=== PATIENT | male | born 1975 | race Hispanic/Latino ===

== ENCOUNTER 2017-06-16 22:57 | Observation (INO) | payer BC, OTHER ==
[~2017-06-16] VITALS: Ht 157.5 cm; Wt 51.3 kg
[2017-06-16] MEDS ORDERED: SODIUM CHLORIDE 0.9% 1000ML 3,000 ML IV ONE (23:29)
[2017-06-16] MEDS ORDERED: ONDANSETRON HCL 4 MG/2 ML VIAL ONE (23:29)
[2017-06-16 23:32] LABS: BASOPHILS % (AUTO) 0.1 % (0.0-5.0); HEMATOCRIT 47.9 % (42-54); LYMPHOCYTES % (AUTO) 5.8 % (21.0-51.0); MEAN CORPUSCULAR HEMOGLOBIN 33.6 pg (27.0-33.0); MEAN CORPUSCULAR VOLUME 96.1 fL (79-99); MONOCYTES % (AUTO) 3.9 % (3.0-13.0); NEUTROPHILS % (AUTO) 90.2 % (40.0-77.0); RED BLOOD CELL COUNT(AUTO) 4.99 MIL/uL (4.50-6.20); RED CELL DISTRIBUTION WIDTH 12.8 % (11.0-15.5); WHITE BLOOD COUNT (AUTO) 16.8 K/uL (4.8-10.8)
[2017-06-16 23:43] LABS: CREATININE 2.1 mg/dL (0.5-1.5); POTASSIUM 3.8 mmol/L (3.5-5.1)
[2017-06-16 23:47] LABS: ALBUMIN 5.5 g/dL (3.5-5.0); BILIRUBIN,TOTAL 0.8 mg/dL (0.2-1.0); TOTAL PROTEIN, SERUM 9.8 g/dL (6.0-8.3)
[2017-06-16 23:51] LABS: PLATELET COUNT (AUTO) 593 K/uL (130-400)
[2017-06-17] MEDS ORDERED: DICYCLOMINE HCL 10 MG/ML 2ML AMP IM ONE ×2 (05:54→08:02)
[2017-06-17] MEDS ORDERED: SODIUM CHLORIDE 0.9% 1000ML 1,000 ML IV ONE ×2 (08:28→22:14)
[2017-06-17] MEDS ORDERED: PANTOPRAZOLE SODIUM 40 MG TABLET.DR PO ONE (08:29)
[2017-06-17 10:12] VITALS: BP 138/81
[2017-06-17 11:00] VITALS: BP 122/65
[2017-06-17] MEDS ORDERED: GABA-529 PO (15:08)
[2017-06-17] MEDS ORDERED: OMEP1PAC5 PO (15:08)
[2017-06-17] MEDS ORDERED: DEXL30CA3 PO (15:08)
[2017-06-17] MEDS ORDERED: DICY20 PO (15:08)
[2017-06-17] MEDS ORDERED: LORA1TAB3 PO (15:08)
[2017-06-17] MEDS ORDERED: ABAC1TAB15 PO (15:08)
[2017-06-17 16:00] VITALS: BP 123/88
[2017-06-17 20:14] VITALS: BP 141/83
[2017-06-18 00:53] VITALS: BP 127/79
[2017-06-18 04:26] VITALS: BP 129/82
[2017-06-18] MEDS ORDERED: SODIUM CHLORIDE 0.9% 1000ML 1,000 ML IV SCH (05:45)
[2017-06-18] MEDS: ONDANSETRON HCL 4 MG/2 ML VIAL IVP PRN ×2 (05:55→16:09)
[2017-06-18 07:45] VITALS: BP 142/80
[2017-06-18] MEDS ORDERED: MORPHINE SULFATE 2 MG/ML 1ML SYG IVP PRN (08:15)
[2017-06-18] MEDS ORDERED: PANTOPRAZOLE 40 MG/VIAL IVP SCH (09:00)
[2017-06-18 11:59] VITALS: BP 123/65
[2017-06-18] MEDS ORDERED: DIPHENOXYLATE HCL/ATROPINE 2.5/0.025 MG TAB PO PRN (12:45)
[2017-06-18 13:39] LABS: CREATININE 0.6 mg/dL (0.5-1.5); POTASSIUM 3.3 mmol/L (3.5-5.1)
[2017-06-18 16:37] VITALS: BP 126/81
== END 2017-06-18 17:30 | disposition home or self-care (01) ==
LOC: EDH 22:57 → EDHIP 06-17 08:18 → 4BH 06-17 09:42
PROVIDERS: ADMIT Internal Medicine Hematology & Oncology; ATTEND Internal Medicine Hematology & Oncology
DX: N17.9 Acute kidney failure, unspecified (principal); K31.84 Gastroparesis; K52.9 Noninfective gastroenteritis and colitis, unspecified; G43.909 Migraine, unspecified, not intractable, without status migrainosus; K21.9 Gastro-esophageal reflux disease without esophagitis; B20 Human immunodeficiency virus [HIV] disease; Z80.1 Family history of malignant neoplasm of trachea, bronchus and lung; Z87.442 Personal history of urinary calculi; Z87.11 Personal history of peptic ulcer disease; Z79.899 Other long term (current) drug therapy
CPT/HCPCS: 36415 ×2; 80048; 80053; 85025; 87046; 87205; 87324; 93005; 96361; 96374; 96375; 96376; 99285; C9113; G0378 ×33; J0500 ×2; J2405 ×3; J7030 ×4

== ENCOUNTER → 2017-08-17 | Outpatient (CLI) | payer BC ==
[~2017-08-17] MED LIST: ABAC1TAB15 PO; DEXL30CA3 PO; DICY20 PO; GABA-529 PO; LORA1TAB3 PO; OMEP1PAC5 PO
== END | disposition home or self-care (01) ==
LOC: RAH 10:51
PROVIDERS: ATTEND Internal Medicine
DX: K21.9 Gastro-esophageal reflux disease without esophagitis (principal); R63.4 Abnormal weight loss; R11.2 Nausea with vomiting, unspecified
CPT/HCPCS: 78264; A9541

== ENCOUNTER 2017-10-21 20:00 | Emergency (ER) | payer BC ==
[2017-10-21 20:30] LABS: BASOPHILS % (AUTO) 0.1 % (0.0-5.0); HEMATOCRIT 42.1 % (42-54); LYMPHOCYTES % (AUTO) 13.2 % (21.0-51.0); MEAN CORPUSCULAR HEMOGLOBIN 34.3 pg (27.0-33.0); MEAN CORPUSCULAR HGB CONC 35.3 g/dL (32.0-36.0); MEAN CORPUSCULAR VOLUME 97.2 fL (79-99); MONOCYTES % (AUTO) 9.7 % (3.0-13.0); PLATELET COUNT (AUTO) 371 K/uL (130-400); RED BLOOD CELL COUNT(AUTO) 4.33 MIL/uL (4.50-6.20); RED CELL DISTRIBUTION WIDTH 12.8 % (11.0-15.5); WHITE BLOOD COUNT (AUTO) 9.2 K/uL (4.8-10.8)
[2017-10-21] MEDS ORDERED: ONDANSETRON HCL 4 MG/2 ML VIAL ONE (20:52)
[2017-10-21] MEDS ORDERED: SODIUM CHLORIDE 0.9% 1000ML 1,000 ML IV ONE (20:52)
[2017-10-21 21:24] LABS: ALBUMIN 5.1 g/dL (3.5-5.0); BILIRUBIN,TOTAL 0.5 mg/dL (0.2-1.0)
[2017-10-21] MEDS ORDERED: POTASSIUM BICARB/CIT AC 25 MEQ TABLET.EFF ONE (21:38)
== END 2017-10-21 22:34 | disposition home or self-care (01) ==
LOC: EEVIPCON 20:00 → EDH 20:00
DX: E87.6 Hypokalemia (principal); R19.7 Diarrhea, unspecified; R11.2 Nausea with vomiting, unspecified; Z88.1 Allergy status to other antibiotic agents; Z88.4 Allergy status to anesthetic agent
CPT/HCPCS: 36415; 80053; 82150; 83690; 85025; 93005; 96361; 96374; 99285; J2405; J7030